=== PATIENT | female | born 1955 | race Caucasian/White ===

== ENCOUNTER 2020-05-01 20:48 | Inpatient (IN) ==
[2020-05-02] MEDS ORDERED: Acetaminophen 325 MG TABLET PO PRN (01:42)
[2020-05-02] MEDS ORDERED: Ondansetron 4 MG/2 ML VIAL IVP PRN (01:42)
[2020-05-02] MEDS ORDERED: Naloxone 0.4 MG/ML INJ IVP PRN (01:42)
[2020-05-02] MEDS ORDERED: *HR* Dextrose 50 % in Water (Vial) 50 ML VIAL IVP PRN (01:45)
[2020-05-02] MEDS ORDERED: Dextrose Gel 15 GM/37.5 ML TUBE PO PRN ×2 (01:45)
[2020-05-02] MEDS ORDERED: D5% in Water 1,000 ML IVC PRN (01:45)
[2020-05-02] MEDS ORDERED: 0.9 % Sodium Chloride 1,000 ML IVC ONE ×2 (03:05→04:41)
[2020-05-02 03:40] LABS: Basophils # 0.1 K/mcL (0.0-0.2); Basophils % 0.6 %; Eosinophils # 0.1 K/mcL (0.0-0.6); Eosinophils % 0.8 %; Hematocrit 40.3 % (35.3-44.9); Hemoglobin 12.6 g/dL (11.5-15.4); Immature Granulocytes % 0.4 % (0-4); Lymphocytes # 3.9 K/mcL (0.6-4.6); Lymphocytes % 26.5 %; Mean Corpuscular HGB Conc 31.3 g/dL (31.6-35.5); Mean Corpuscular Hemoglobin 27.6 pg (28.0-33.3); Mean Corpuscular Volume 88.2 fL (83.0-100.0); Monocytes # 1.3 K/mcL (0.0-1.3); Monocytes % 8.5 %; Neutrophils # 9.2 K/mcL (1.6-8.9); Platelet Count 186 K/mcL (140-400); Red Blood Count 4.57 M/mcL (3.82-4.97); Red Cell Distribution Width 13.5 % (11.5-14.5); Segmented Neutrophils % 63.2 %; White Blood Count 14.6 K/mcL (4.3-11.1)
[2020-05-02] MEDS: Nystatin POWDER 30 GM BOTTLE TP SCH ×4 (03:56→21:20)
[2020-05-02 04:03] LABS: Albumin 3.2 g/dL (3.5-5.7); Albumin/Globulin Ratio 1.3 (1.1-2.2); Bilirubin,Total 0.4 mg/dL (0.3-1.0); Calcium 8.4 mg/dL (8.6-10.3); Globulin 2.4 g/dL (2.4-3.5); Phosphorous 3.7 mg/dL (2.7-4.5); Potassium 3.6 mEq/L (3.5-5.1); Total Protein 5.6 g/dL (6.4-8.9); Troponin I 0.03 ng/mL (< 0.04)
[2020-05-02] MEDS ORDERED: Insulin LISPRO 300 UNITS/3 ML VIAL SQ SCH ×3 (06:00→21:00)
[2020-05-02] MEDS: Apixaban 5 MG TABLET PO SCH ×2 (07:50→19:59)
[2020-05-02] MEDS: Aspirin Enteric Coated 81 MG Tablet PO SCH (07:50)
[2020-05-02] MEDS: cefTRIAXone 1,000 MG in Water for inj. (sterile) 10 ML IVP SCH (07:52)
[2020-05-02 09:16] LABS: Calcium 8.6 mg/dL (8.6-10.3); Potassium 3.4 mEq/L (3.5-5.1); Troponin I 0.03 ng/mL (< 0.04)
[2020-05-02 09:20] LABS: Bacteria,Urine Few per hpf (None-Few); Bilirubin,Urine Negative (Negative); Blood,Urine Negative (Negative); Clarity,Urine Turbid (Clear); Color,Urine Light-Yellow (Yellow); Glucose,Urine (UA) Normal (Normal); Hyaline Casts,Urine Few per lpf (None Seen); Ketones,Urine Negative (Negative); Leukocyte Esterase,Urine Small (Negative); Mucus,Urine Few per lpf (None-Few); Nitrite,Urine Negative (Negative); PH,Urine 5.5 pH Units (5.0-8.0); Protein,Urine Trace mg/dL (Neg-Trace); RBC,Urine 0-3 per hpf (0-3); Specific Gravity,Urine 1.018 (1.010-1.025); Squamous Epithelial Cell,Urine Moderate per hpf (None-Few); Urobilinogen,Urine Normal (Normal); WBC,Urine 15-30 per hpf (0-3)
[2020-05-02 09:25] LABS: Sodium, Urine 53.8 mEq/L
[2020-05-02] MEDS: Insulin LISPRO 300 UNITS/3 ML VIAL SQ SCH ×3 (11:39→20:56)
[2020-05-03 05:24] LABS: Basophils # 0.1 K/mcL (0.0-0.2); Basophils % 0.9 %; Eosinophils # 0.2 K/mcL (0.0-0.6); Eosinophils % 1.8 %; Hematocrit 38.1 % (35.3-44.9); Hemoglobin 12.1 g/dL (11.5-15.4); Immature Granulocytes % 0.5 % (0-4); Immature Platelets 15.4 % (1.1-6.1); Lymphocytes # 2.8 K/mcL (0.6-4.6); Lymphocytes % 31.5 %; Mean Corpuscular HGB Conc 31.8 g/dL (31.6-35.5); Mean Corpuscular Hemoglobin 27.7 pg (28.0-33.3); Mean Corpuscular Volume 87.2 fL (83.0-100.0); Mean Platelet Volume 12.9 fL (9.4-12.4); Monocytes # 0.9 K/mcL (0.0-1.3); Monocytes % 9.7 %; Neutrophils # 4.9 K/mcL (1.6-8.9); Platelet Count 146 K/mcL (140-400); Red Blood Count 4.37 M/mcL (3.82-4.97); Red Cell Distribution Width 13.5 % (11.5-14.5); Segmented Neutrophils % 55.6 %; White Blood Count 8.8 K/mcL (4.3-11.1)
[2020-05-03 05:34] LABS: Calcium 8.3 mg/dL (8.6-10.3); Potassium 4.1 mEq/L (3.5-5.1)
[2020-05-03] MEDS: Insulin LISPRO 300 UNITS/3 ML VIAL SQ SCH ×4 (07:57→20:27)
[2020-05-03] MEDS: cefTRIAXone 1,000 MG in Water for inj. (sterile) 10 ML IVP SCH (07:58)
[2020-05-03] MEDS: Aspirin Enteric Coated 81 MG Tablet PO SCH (07:58)
[2020-05-03] MEDS: Apixaban 5 MG TABLET PO SCH ×2 (07:58→20:28)
[2020-05-03] MEDS: Nystatin POWDER 30 GM BOTTLE TP SCH ×3 (08:05→20:29)
[2020-05-03] MEDS ORDERED: Nystatin POWDER 30 GM BOTTLE TP PRN (08:25)
[2020-05-03] MEDS ORDERED: Loratadine 10 MG TABLET PO PRN (08:25)
[2020-05-03] MEDS: Gabapentin 300 MG CAPSULE PO SCH ×3 (09:58→20:28)
[2020-05-03] MEDS: Cholecalciferol (D-3) 1,000 UNIT (25MCG) TABLET PO SCH (09:58)
[2020-05-03] MEDS: PrednisoLONE Acetate 1% Opth 5 ML BOTTLE RIGHT EYE SCH ×2 (09:59→20:27)
[2020-05-03] MEDS: Magnesium Oxide 400 MG TABLET PO SCH ×2 (09:59→20:28)
[2020-05-03] MEDS: carvediloL 6.25 MG TABLET PO SCH ×2 (09:59→16:49)
[2020-05-03] MEDS: amLODIPine 5 MG TABLET PO SCH (09:59)
[2020-05-03] MEDS: Insulin DETEMIR 100 UNIT/ML X5UNITS SQ SCH ×2 (09:59→20:27)
[2020-05-03] MEDS: tiZANidine 4 MG TABLET PO SCH ×4 (09:59→20:28)
[2020-05-03] MEDS: Isosorbide MONOnitrate (24 HR) 30 MG TAB.ER.24H PO SCH (09:59)
[2020-05-04 05:04] LABS: Basophils # 0.1 K/mcL (0.0-0.2); Eosinophils # 0.2 K/mcL (0.0-0.6); Eosinophils % 2.1 %; Hematocrit 38.9 % (35.3-44.9); Hemoglobin 12.3 g/dL (11.5-15.4); Immature Granulocytes % 0.5 % (0-4); Lymphocytes # 3.8 K/mcL (0.6-4.6); Mean Corpuscular HGB Conc 31.6 g/dL (31.6-35.5); Mean Corpuscular Hemoglobin 27.5 pg (28.0-33.3); Monocytes # 0.9 K/mcL (0.0-1.3); Monocytes % 8.6 %; Neutrophils # 5.4 K/mcL (1.6-8.9); Platelet Count 167 K/mcL (140-400); Red Blood Count 4.47 M/mcL (3.82-4.97); Red Cell Distribution Width 13.5 % (11.5-14.5); Segmented Neutrophils % 51.8 %; White Blood Count 10.4 K/mcL (4.3-11.1)
[2020-05-04 05:20] LABS: Calcium 8.7 mg/dL (8.6-10.3)
[2020-05-04] MEDS: carvediloL 6.25 MG TABLET PO SCH (08:06)
[2020-05-04] MEDS: Magnesium Oxide 400 MG TABLET PO SCH (08:12)
[2020-05-04] MEDS: amLODIPine 5 MG TABLET PO SCH (08:12)
[2020-05-04] MEDS: Aspirin Enteric Coated 81 MG Tablet PO SCH (08:12)
[2020-05-04] MEDS: Gabapentin 300 MG CAPSULE PO SCH (08:12)
[2020-05-04] MEDS: Isosorbide MONOnitrate (24 HR) 30 MG TAB.ER.24H PO SCH (08:13)
[2020-05-04] MEDS: tiZANidine 4 MG TABLET PO SCH (08:13)
[2020-05-04] MEDS: Cholecalciferol (D-3) 1,000 UNIT (25MCG) TABLET PO SCH (08:13)
[2020-05-04] MEDS: Apixaban 5 MG TABLET PO SCH (08:13)
[2020-05-04] MEDS: Insulin LISPRO 300 UNITS/3 ML VIAL SQ SCH ×2 (08:14→11:29)
[2020-05-04] MEDS: cefTRIAXone 1,000 MG in Water for inj. (sterile) 10 ML IVP SCH (08:14)
[2020-05-04] MEDS: Nystatin POWDER 30 GM BOTTLE TP SCH (08:17)
[2020-05-04] MEDS: Insulin DETEMIR 100 UNIT/ML X5UNITS SQ SCH (08:17)
[2020-05-04] MEDS: PrednisoLONE Acetate 1% Opth 5 ML BOTTLE RIGHT EYE SCH (08:17)
[2020-05-04 10:30] VITALS: BP 91/56
[2020-05-04] MEDS ORDERED: Insulin DETEMIR 100 UNIT/ML X5UNITS SQ SCH (21:00)
== END 2020-05-04 15:13 | disposition home health service (06) | DRG 683 ==
LOC: 2ANU → SUATTDRO 22:49
PROVIDERS: ADMIT Internal Medicine; ATTEND Internal Medicine

== ENCOUNTER 2020-08-14 15:47 | Inpatient (IN) ==
[2020-08-14] MEDS ORDERED: Naloxone 0.4 MG/ML INJ IVP PRN ×2 (20:21→21:11)
[2020-08-14] MEDS ORDERED: D5% in 0.45% NACL 1,000 ML IVC PRN (20:28)
[2020-08-14] MEDS ORDERED: *HR* Dextrose 50 % in Water (Vial) 50 ML VIAL IVP PRN ×2 (20:28→23:32)
[2020-08-14] MEDS ORDERED: D5% in 0.45% NACL w KCl 20 MEQ/1,000 ML MLS IVC PRN (20:28)
[2020-08-14] MEDS ORDERED: Insulin Regular, Human 100 UNIT/ML IV PRN (20:28)
[2020-08-14] MEDS ORDERED: Insulin Human Regular 100 UNIT in 0.9 % Sodium Chloride 100 ML IVC SCH (20:30)
[2020-08-14] MEDS ORDERED: 0.45 % Sodium Chloride w/KCl 20 MEQ/1,000 ML MLS IVC SCH (20:30)
[2020-08-14] MEDS ORDERED: tiZANidine 4 MG TABLET PO ONE (20:55)
[2020-08-14] MEDS ORDERED: Acetaminophen 325 MG TABLET PO ONE (20:55)
[2020-08-14 20:59] LABS: Basophils % 0.3 %; Hematocrit 45.7 % (35.3-44.9); Hemoglobin 15.1 g/dL (11.5-15.4); Immature Granulocytes % 0.3 % (0-4); Lymphocytes # 1.2 K/mcL (0.6-4.6); Lymphocytes % 8.8 %; Mean Corpuscular Hemoglobin 28.4 pg (28.0-33.3); Mean Corpuscular Volume 86.1 fL (83.0-100.0); Mean Platelet Volume 12.5 fL (9.4-12.4); Monocytes # 0.9 K/mcL (0.0-1.3); Monocytes % 6.2 %; Neutrophils # 11.7 K/mcL (1.6-8.9); Platelet Count 246 K/mcL (140-400); Red Blood Count 5.31 M/mcL (3.82-4.97); Red Cell Distribution Width 14.1 % (11.5-14.5); Segmented Neutrophils % 84.4 %; White Blood Count 13.8 K/mcL (4.3-11.1)
[2020-08-14 21:20] LABS: Albumin 4.2 g/dL (3.5-5.7); Albumin/Globulin Ratio 1.2 (1.1-2.2); Bilirubin,Total 0.7 mg/dL (0.3-1.0); Calcium 10.1 mg/dL (8.6-10.3); Globulin 3.6 g/dL (2.4-3.5); Magnesium 1.6 mg/dL (1.6-2.6); Phosphorous 2.7 mg/dL (2.7-4.5); Potassium 3.4 mEq/L (3.5-5.1); Total Protein 7.8 g/dL (6.4-8.9)
[2020-08-14 21:25] LABS: Troponin I 0.04 ng/mL (< 0.04)
[2020-08-14] MEDS ORDERED: *HR* Labetalol 20 MG/4 ML SYRINGE IVP ONE (21:55)
[2020-08-14] MEDS: cefTRIAXone 1,000 MG in Water for inj. (sterile) 10 ML IVP SCH (22:21)
[2020-08-14] MEDS ORDERED: D5% in Water 1,000 ML IVC PRN (23:32)
[2020-08-14] MEDS ORDERED: Dextrose Gel 15 GM/37.5 ML TUBE PO PRN ×2 (23:32)
[2020-08-14] MEDS: Insulin DETEMIR 100 UNIT/ML X5UNITS SUBQ SCH (23:56)
[2020-08-15 02:54] LABS: Basophils # 0.1 K/mcL (0.0-0.2); Basophils % 0.4 %; Hematocrit 44.6 % (35.3-44.9); Hemoglobin 14.4 g/dL (11.5-15.4); Immature Granulocytes % 0.5 % (0-4); Lymphocytes # 2.5 K/mcL (0.6-4.6); Lymphocytes % 15.2 %; Mean Corpuscular HGB Conc 32.3 g/dL (31.6-35.5); Mean Corpuscular Volume 86.8 fL (83.0-100.0); Mean Platelet Volume 12.6 fL (9.4-12.4); Monocytes # 1.7 K/mcL (0.0-1.3); Monocytes % 10.3 %; Neutrophils # 12.2 K/mcL (1.6-8.9); Platelet Count 231 K/mcL (140-400); Red Blood Count 5.14 M/mcL (3.82-4.97); Red Cell Distribution Width 14.2 % (11.5-14.5); Segmented Neutrophils % 73.6 %; White Blood Count 16.6 K/mcL (4.3-11.1)
[2020-08-15 03:01] LABS: INR 1.3; Prothrombin Time 15.1 Seconds (9.4-12.1)
[2020-08-15 03:28] LABS: Troponin I 0.05 ng/mL (< 0.04)
[2020-08-15 03:37] LABS: Calcium 9.9 mg/dL (8.6-10.3); Chol/HDL Ratio 4.2 (0-4.9); Magnesium 1.7 mg/dL (1.6-2.6)
[2020-08-15 03:38] LABS: Potassium 3.6 mEq/L (3.5-5.1)
[2020-08-15] MEDS: Ondansetron ODT 4 MG TAB.RAPDIS SL PRN (03:38)
[2020-08-15 05:23] LABS: Estimated Average Glucose 169 mg/dl; Hemoglobin A1C 7.5 %
[2020-08-15] MEDS ORDERED: tiZANidine 4 MG TABLET PO ONE (05:53)
[2020-08-15] MEDS: Insulin LISPRO 300 UNITS/3 ML VIAL SUBQ SCH ×4 (06:11→17:58)
[2020-08-15] MEDS: Nystatin POWDER 30 GM BOTTLE TP SCH ×2 (06:16→20:41)
[2020-08-15] MEDS: cefTRIAXone 1,000 MG in Water for inj. (sterile) 10 ML IVP SCH (09:23)
[2020-08-15] MEDS ORDERED: *HR* Labetalol 20 MG/4 ML SYRINGE IVP ONE (12:33)
[2020-08-15] MEDS: tiZANidine 4 MG TABLET PO SCH ×3 (12:52→20:41)
[2020-08-15] MEDS: carvediloL 6.25 MG TABLET PO SCH (16:01)
[2020-08-15] MEDS: Gabapentin 300 MG CAPSULE PO SCH ×2 (16:01→20:40)
[2020-08-15] MEDS: amLODIPine 5 MG TABLET PO SCH (17:57)
[2020-08-15] MEDS ORDERED: Artificial Tears SOLN 15 ML BOTTLE BOTH EYES PRN (20:30)
[2020-08-15] MEDS: Apixaban 5 MG TABLET PO SCH (20:41)
[2020-08-15] MEDS: Insulin DETEMIR 100 UNIT/ML X5UNITS SUBQ SCH (20:44)
[2020-08-15] MEDS ORDERED: Insulin DETEMIR 100 UNIT/ML X5UNITS SUBQ SCH (21:00)
[2020-08-16] MEDS: Insulin LISPRO 300 UNITS/3 ML VIAL SUBQ SCH ×2 (00:50→06:02)
[2020-08-16 02:07] LABS: Basophils # 0.1 K/mcL (0.0-0.2); Eosinophils # 0.1 K/mcL (0.0-0.6); Eosinophils % 1.1 %; Hematocrit 42.2 % (35.3-44.9); Hemoglobin 13.5 g/dL (11.5-15.4); Immature Granulocytes % 0.3 % (0-4); Lymphocytes # 3.8 K/mcL (0.6-4.6); Lymphocytes % 33.7 %; Mean Corpuscular Hemoglobin 28.5 pg (28.0-33.3); Mean Corpuscular Volume 89.2 fL (83.0-100.0); Mean Platelet Volume 12.5 fL (9.4-12.4); Monocytes # 1.2 K/mcL (0.0-1.3); Monocytes % 10.1 %; Neutrophils # 6.1 K/mcL (1.6-8.9); Platelet Count 174 K/mcL (140-400); Red Blood Count 4.73 M/mcL (3.82-4.97); Red Cell Distribution Width 14.1 % (11.5-14.5); Segmented Neutrophils % 53.8 %; White Blood Count 11.4 K/mcL (4.3-11.1)
[2020-08-16 02:27] LABS: Calcium 9.6 mg/dL (8.6-10.3); Magnesium 1.7 mg/dL (1.6-2.6); Potassium 3.5 mEq/L (3.5-5.1)
[2020-08-16] MEDS: carvediloL 6.25 MG TABLET PO SCH (07:27)
[2020-08-16] MEDS: Apixaban 5 MG TABLET PO SCH (07:27)
[2020-08-16] MEDS: Gabapentin 300 MG CAPSULE PO SCH ×2 (07:36→14:02)
[2020-08-16] MEDS: tiZANidine 4 MG TABLET PO SCH ×2 (07:37→13:08)
[2020-08-16] MEDS: amLODIPine 5 MG TABLET PO SCH (07:37)
[2020-08-16] MEDS: cefTRIAXone 1,000 MG in Water for inj. (sterile) 10 ML IVP SCH (07:38)
[2020-08-16] MEDS: Nystatin POWDER 30 GM BOTTLE TP SCH (07:47)
[2020-08-16] MEDS: Ondansetron ODT 4 MG TAB.RAPDIS SL PRN (07:57)
[2020-08-16] MEDS ORDERED: Acetaminophen 325 MG TABLET PO PRN (08:05)
[2020-08-16] MEDS ORDERED: Cholecalciferol (D-3) 1,000 UNIT (25MCG) TABLET PO SCH (09:00)
[2020-08-16] MEDS ORDERED: lisinopriL 5 MG TABLET PO SCH (09:00)
[2020-08-16] MEDS ORDERED: Aspirin Enteric Coated 81 MG Tablet PO SCH (09:00)
[2020-08-16] MEDS ORDERED: Insulin LISPRO 300 UNITS/3 ML VIAL SUBQ SCH (11:30)
[2020-08-16 13:27] LABS: VBG HCO3 28 mEq/L (21-27); VBG PCO2 38 mmHg (41-51); VBG PH 7.47 pH Units (7.32-7.42); VBG PO2 115 mmHg (25-50)
[2020-08-16 13:52] VITALS: BP 123/75
[2020-08-17] MEDS ORDERED: lisinopriL 10 MG TABLET PO SCH (09:00)
== END 2020-08-16 16:25 | disposition home or self-care (01) | DRG 872 ==
LOC: 2NNU
PROVIDERS: ADMIT Internal Medicine; ATTEND Internal Medicine